=== PATIENT | female | born 1950 | race Caucasian/White ===

== ENCOUNTER 2021-08-24 12:58 | Emergency (ER) | payer BC, MEDICARE ==
[~2021-08-24] VITALS: Ht 160 cm; Wt 66.8 kg
[2021-08-24] MEDS ORDERED: aspirin 81mg tab.chew PO ONE (13:55)
--- NOTE | 2021-08-24 14:07 | NUR ---
Spoke with [facility]. 32 non-sustained events. x3 shocks for afib RVR. HR reaching 176bpm and [address] Leonard aware.
[2021-08-24 14:13] LABS: ALANINE AMINOTRANSFERASE 23 U/L (12-78); ALBUMIN 3.6 G/DL (3.4-5.0); ALBUMIN/GLOBULIN RATIO 1.2 (1.1-1.5); ALKALINE PHOSPHATASE 90 IU/L (46-116); ANION GAP 11 (8-16); ASPARTATE AMINO TRANSFERASE 18 U/L (10-37); BILIRUBIN,TOTAL 0.6 MG/DL (0.1-1.0); BLOOD UREA NITROGEN 19 MG/DL (7-18); BUN/CREATININE RATIO 17.1 (6.6-38.0); CALCIUM 9.2 MG/DL (8.5-10.1); CHLORIDE 105 MMOL/L (99-107); CREATININE 1.11 MG/DL (0.40-0.90); GLUCOSE 112 MG/DL (70-104); POTASSIUM 4.3 MMOL/L (3.5-5.1); SODIUM 140 MMOL/L (135-145); TOTAL CARBON DIOXIDE 24.2 MMOL/L (24-32); TOTAL PROTEIN 6.7 G/DL (6.4-8.2); eGFR 48 ML/MIN
[2021-08-24 14:18] LABS: MAGNESIUM 1.7 MG/DL (1.5-2.4)
[2021-08-24 14:40] LABS: BASOPHILS % (AUTO) 0.4 % (0-1); EOSINOPHILS # (AUTO) 0.1 X10'3 (0-0.9); EOSINOPHILS % (AUTO) 1.2 % (0-6); HEMATOCRIT 35.6 % (35.0-45.0); HEMOGLOBIN 11.9 g/dl (12.0-16.0); LYMPHOCYTES # (AUTO) 1.1 X10'3 (1.1-4.8); LYMPHOCYTES % (AUTO) 10.6 % (21-51); MEAN CORPUSCULAR HEMOGLOBIN 29.6 PG (27.0-31.0); MEAN CORPUSCULAR HGB CONC 33.5 g/dL (33.0-36.5); MEAN CORPUSCULAR VOLUME 88.5 FL (78-98); MEAN PLATELET VOLUME 10.3 FL (7.4-10.4); MONOCYTES # (AUTO) 0.6 X10'3 (0-0.9); MONOCYTES % (AUTO) 6.4 % (2-12); NEUTROPHILS # (AUTO) 8.2 X10'3 (1.8-7.7); NEUTROPHILS % (AUTO) 81.4 % (42-75); PLATELET COUNT 227 X10'3 (140-440); RED BLOOD COUNT 4.03 X10'6 (4.20-5.60); RED CELL DISTRIBUTION WIDTH 13.8 % (11.5-14.5)
[2021-08-24 15:52] VITALS: BP 130/69
== END 2021-08-24 16:21 | disposition home or self-care (01) ==
LOC: ER 13:00
DX: I48.20 Chronic atrial fibrillation, unspecified (principal); Z95.0 Presence of cardiac pacemaker
CPT/HCPCS: 36415; 71045; 80053; 83735; 83880; 84484; 85025; 93005; 99285

== ENCOUNTER 2022-08-19 10:54 | Day surgery (SDC) | payer MEDICARE ==
[~2022-08-19] VITALS: Ht 160 cm; Wt 63.0 kg
[2022-08-19] MEDS ORDERED: LORazepam 0.5 MG tablet PO PRN (11:15)
[2022-08-19] MEDS ORDERED: normal saline 1,000 ML IV SCH (11:15)
[2022-08-19 11:21] VITALS: BP 116/68
[2022-08-19] MEDS ORDERED: midazolam 1 mg/ML 2ml injection ONE ×2 (11:41→13:56)
[2022-08-19] MEDS ORDERED: LIDOcaine 1% 30ml preserv. free vial ONE (11:41)
[2022-08-19] MEDS ORDERED: fentaNYL/PF 50MCG/1 ML 2ML syringe ONE (11:41)
[2022-08-19] MEDS ORDERED: iohexol 350 MG/ML 50ML vial IV ONE (11:42)
[2022-08-19] MEDS ORDERED: heparin 1,000 UNITS/NS 500ml 500 ML ONE (11:51)
[2022-08-19] MEDS ORDERED: AMIO200T61 PO (12:18)
[2022-08-19] MEDS ORDERED: SPIR25TA5 PO (12:18)
[2022-08-19] MEDS ORDERED: EMPA10TA PO (12:18)
[2022-08-19] MEDS ORDERED: APIX5TAB3 PO (12:18)
[2022-08-19] MEDS ORDERED: METO-411 PO (12:18)
[2022-08-19] MEDS ORDERED: VALS160T30 PO (12:18)
[2022-08-19] MEDS ORDERED: ASPI-128 (12:18)
[2022-08-19] MEDS ORDERED: DULO60CA65 PO (12:18)
[2022-08-19] MEDS ORDERED: LEVO88TA7 PO (12:18)
[2022-08-19 14:49] VITALS: BP 105/62
[2022-08-19 15:00] VITALS: BP 95/56
[2022-08-19] MEDS ORDERED: HYDROcodone/acetaminophen 5mg/325mg tablet PO PRN (15:05)
[2022-08-19] MEDS ORDERED: HYDROcodone/acetaminophen 10/325mg tab PO PRN (15:05)
[2022-08-19 15:15] VITALS: BP 99/59
[2022-08-19 15:30] VITALS: BP 97/54
[2022-08-19 16:15] VITALS: BP 102/56
[2022-08-19 16:19] LABS: ISTAT Hct MIX 30 %PCV (35-45); ISTAT O2 SATURATION MIX VENOUS 64 % (60-80); ISTAT SOURCE VEN
== END 2022-08-19 17:03 | disposition home or self-care (01) ==
LOC: SSTAY O 10:54
PROVIDERS: ATTEND Student in an Organized Health Care Education/Training Program
DX: I11.0 Hypertensive heart disease with heart failure (principal); I50.9 Heart failure, unspecified; E03.9 Hypothyroidism, unspecified; I48.20 Chronic atrial fibrillation, unspecified; I34.0 Nonrheumatic mitral (valve) insufficiency; Z91.09 Other allergy status, other than to drugs and biological substances; Z88.8 Allergy status to other drugs, medicaments and biological substances; Z79.01 Long term (current) use of anticoagulants; Z79.899 Other long term (current) drug therapy; Z85.3 Personal history of malignant neoplasm of breast
CPT/HCPCS: 33289; 76937; 82803; 82948; 85014; 93005; 99152; 99153; C1751; C1769; C1894; C2624; J1644; J2250; J3010; J3490; J7030; Q9967; 93451; A6258; A6449